=== PATIENT | male | born 1955 | race African-American/Black ===

== ENCOUNTER 2023-03-20 13:21 | Outpatient (CLI) | payer MEDICARE, MEDICAID | END 2023-03-20 13:22 | disposition home or self-care (01) | LOC: CSHMRI 13:21 | PROVIDERS: ATTEND Urology | DX: C61 Malignant neoplasm of prostate (principal) | CPT/HCPCS: 72197; 82565 ==

== ENCOUNTER 2023-04-23 10:22 | Outpatient (CLI) | payer MEDICARE, MEDICAID | END 2023-04-23 10:23 | disposition home or self-care (01) | LOC: CSHCP 10:22 | PROVIDERS: ATTEND Internal Medicine Critical Care Medicine | DX: R06.09 Other forms of dyspnea (principal); J98.4 Other disorders of lung | CPT/HCPCS: 94060; 94664; 94726; 94729; 94760 ==

== ENCOUNTER 2023-06-17 08:19 | Outpatient (CLI) | payer MEDICARE, MEDICAID ==
[2023-06-17] MEDS ORDERED: Magnevist 469MG/ML 20 ML VIAL ONE (10:58)
== END 2023-06-17 08:20 | disposition home or self-care (01) ==
LOC: CSHMRI 08:19
PROVIDERS: ATTEND Urology
DX: C61 Malignant neoplasm of prostate (principal); N40.2 Nodular prostate without lower urinary tract symptoms
CPT/HCPCS: 72197